=== PATIENT | male | born 1990 | race Caucasian/White ===

== ENCOUNTER 2023-10-01 20:53 | Emergency (ER) | payer OTHER ==
[2023-10-01 20:59] VITALS: BP 112/77; PULSE 68; RESP 17; TEMP 98.4; BMI 23.7
[2023-10-01] MEDS ORDERED: predniSONE 20 MG TABLET (UD) ONE (22:25)
[2023-10-01] MEDS: predniSONE 20 MG TABLET (UD) PO ONE (22:35)
== END 2023-10-01 23:00 | disposition home or self-care (01) ==
LOC: FER 20:53
DX: L23.7 Allergic contact dermatitis due to plants, except food (principal); R21 Rash and other nonspecific skin eruption
CPT/HCPCS: 99283-25